=== PATIENT | female | born 1990 | race Caucasian/White ===

== ENCOUNTER → 2017-01-04 | Outpatient (CLI) | payer BC ==
[~2017-01-04] MED LIST: ALBU1AER9 PO; AMOX1TAB43 PO; BCPILLS PO; EPP3/2 IM; HYDR-3785 PO; PRED20TA2 PO
[2017-01-04 15:59] LABS: URINE APPEARANCE CLEAR (CLEAR); URINE BILIRUBIN NEG (NEG); URINE COLOR YELLOW; URINE NITRITE NEG (NEG); URINE SPECIFIC GRAVITY 1.019 (1.000-1.030); UROBILINOGEN NEG (NEG)
[2017-01-04 16:02] LABS: MANUAL MICROSCOPIC REQUIRED? NO; REVIEW REQ? NO
== END | disposition home or self-care (01) ==
LOC: C.LABSPEC 15:39
PROVIDERS: ATTEND Obstetrics & Gynecology
DX: Z34.01 Encounter for supervision of normal first pregnancy, first trimester (principal)

== ENCOUNTER → 2017-01-06 | Outpatient (CLI) | payer BC ==
[2017-01-06 17:17] LABS: BASO % 0.4 %; BASO ABS # 0.04 K/uL (0-0.2); COMPLETE YES; EOS % 1.1 %; IG% 0.4 %; LYMPH % 18.4 %; LYMPH ABS # 1.79 K/uL (1.2-3.4); MEAN CELL VOLUME 84.7 fL (80-100); MEAN CORPUSCULAR HEMOGLOBIN 30.4 pg (25-34); MEAN CORPUSCULAR HGB CONC 35.8 g/dl (32-36); MEAN PLATELET VOLUME 12.3 fL (7.4-10.4); MONO % 7.2 %; NEUT % 72.5 %; PLATELET COUNT 171 K/uL (130-400); RED BLOOD COUNT 4.25 M/uL (4.2-5.4); WHITE BLOOD COUNT 9.75 K/uL (4.8-10.8)
[2017-01-09 07:21] LABS: CHLAMYDIA TRACH RNA*** NOT DETECTED (NOT DETECTED); GC (NEIS GONORRHOEAE)RNA** NOT DETECTED (NOT DETECTED)
== END | disposition home or self-care (01) ==
LOC: C.LAB1850 16:14
PROVIDERS: ATTEND Obstetrics & Gynecology
DX: Z34.01 Encounter for supervision of normal first pregnancy, first trimester (principal)

== ENCOUNTER 2017-01-28 18:50 | Emergency (ER) | payer BC ==
[~2017-01-28] VITALS: Ht 170.2 cm; Wt 69.7 kg
[2017-01-28 18:54] VITALS: TEMP 36.9; Ht 170.2 cm; Wt 69.7 kg
[2017-01-28] MEDS ORDERED: SODIUM CHLORIDE 0.9% 1000ML 1,000 ML IV STA (19:08)
[2017-01-28 19:36] LABS: BASO % 0.1 %; BASO ABS # 0.01 K/uL (0-0.2); COMPLETE YES; EOS % 0.1 %; HEMATOCRIT 38.2 % (37-47); IG% 0.2 %; LYMPH % 3.4 %; LYMPH ABS # 0.39 K/uL (1.2-3.4); MEAN CELL VOLUME 83.6 fL (80-100); MEAN CORPUSCULAR HEMOGLOBIN 30.4 pg (25-34); MEAN CORPUSCULAR HGB CONC 36.4 g/dl (32-36); MEAN PLATELET VOLUME 12.5 fL (7.4-10.4); MONO % 3.4 %; NEUT % 92.8 %; PLATELET COUNT 162 K/uL (130-400); RED BLOOD COUNT 4.57 M/uL (4.2-5.4); WHITE BLOOD COUNT 11.32 K/uL (4.8-10.8)
[2017-01-28 19:53] LABS: BUN/CREATININE RATIO 16.7 (10-20); CALCIUM 8.9 mg/dl (8.5-10.1); CREATININE 0.62 mg/dl (0.60-1.20); POTASSIUM 3.6 mmol/L (3.5-5.1)
[2017-01-28 19:56] LABS: ALB/GLOB RATIO 1.1 (0.9-2)
--- NOTE | 2017-01-28 20:57 | EMERGENCY ROOM VISIT NOTE ---
History First contact with patient: 18:58 Chief Complaint: DEHYDRATION Stated Complaint: THROWING UP, DIZZY, NAUSEA, 11 WKS PREG Nursing Triage Summary: pt is 11 weeks , c/o n/v and dizziness x 2 weeks, worse recently. Pt states that she was advised by OB to come to ED for fluids if symptoms persisted. Pt denies syncope, falls, chest pain, cramping, vaginal bleeding. History of Present Illness The patient is a 26 year old female who presents to the Emergency Room via private vehicle with complaints of "throwing up, dizzy, nausea, 11 weeks ". The patient states that she is 11 weeks , and since week 5 or 6 she has had nausea and vomiting. She states that over the past 2 days she notes that it is worsening and that she cannot keep down foods, and that she vomited 12 times today. She denies any nausea medication. She notes minimal shortness of breath but notes that she does have a cold. She also notes low back pain of which is chronic. She did have a UTI a few weeks ago. There is no vaginal bleeding. She does note minimal lower abdominal cramping which has been ongoing and is not new. Review of Systems A complete 10-point Review of Systems was discussed with the patient, with pertinent positives and negatives listed in the History of Present Illness. All remaining Review of Systems questions can be considered negative unless otherwise specified. Past Medical/Surgical History Medical Problems: (1) Acute gastroenteritis (2) Bronchitis (3) Endometriosis Surgical Problems: (1) No significant past surgical history (2) [place] teeth extracted Family History Cancer Diabetes mellitus Heart disease Hypertension Lung disease Social History Smoking Status: Never Smoker Alcohol Use: none Marital Status: Housing Status: lives with significant other Occupation Status: employed Current/Historical Medications Scheduled Ondasetron Odt (Zofran Odt), 4 MG SL Q6H Physical Exam Vital Signs Date Time Temp Pulse Resp B/P (MAP) Pulse Ox O2 Delivery O2 Flow Rate FiO2 01/28/17 23:16 73 18 100/56 99 Room Air 01/28/17 22:28 74 20 128/72 95 Room Air 01/28/17 19:59 78 18 108/54 98 Room Air 01/28/17 18:54 36.9 101 20 119/75 98 Room Air Physical Exam VITAL SIGNS - Vital signs and nursing notes were reviewed. Stable. GENERAL - 26-year-old female appearing her stated age who is in no acute distress. Communicates well with provider and answers questions appropriately. SKIN - Without rashes. HEAD - NC/AT. EYES - Sclera anicteric. EARS - No deformities of external structures noted on gross examination bilaterally. NOSE - Midline and without cyanosis. No epistaxis or purulent drainage noted. MOUTH/OROPHARYNX - Without perioral cyanosis. LUNGS - Chest wall symmetric without accessory muscle use, intercostals retractions, or central cyanosis. Normal vesicular breath sounds CTA B/L. No wheezes, rales, or rhonchi appreciated. CARDIAC - RRR with S1/S2. No murmur, rubs, or gallops appreciated. EXTREMITIES - No clubbing or peripheral cyanosis. NEUROLOGIC - Cranial nerves II through XII grossly intact. PSYCH -Pt is very pleasant and interacts well with examiner. Medical Decision & Procedures ER Provider Diagnostic Interpretation: <14 WKS SINGLE ULTRASOUND CLINICAL HISTORY: 11 weeks , nausea, vomiting, dizziness COMPARISON STUDY: Pelvic ultrasound 09/15/2014. FINDINGS: There is a single intrauterine gestational sac, yolk sac, and pole demonstrating a crown-rump length of or 4.45 cm. This is consistent with an 11 week and 2 day intrauterine gestation. heart rate was 172 bpm. The cervix is closed. There is a 1.8 cm subchorionic hematoma adjacent to the gestational sac along the right side. This is considered to be within the range of normal limits. This does not result significant mass effect. Normal left ovary. The right ovary was obscured by overlying bowel gas. Developing placenta which is low lying likely due to the gestational age. IMPRESSION: 1. A single viable 11 week and 2 day intrauterine gestation with a heart rate of 172 bpm. 2. Small subchorionic hematoma which is considered to be within the range of normal limits. No associated mass effect. 3. Normal left ovary. The right ovary was obscured by overlying bowel gas. 4. There is a developing placenta which is low lying and adjacent to the cervical os which is likely due to the gestational age. Follow-up pelvic ultrasound at the 20 week jeri is recommended to exclude the less likely possibility of a placenta previa. Electronically signed by: Ebenezer Pretty M.D. 01/28/2017 9:02 PM Dictated Date/Time: 01/28/2017 8:57 PM Laboratory Results 01/28/17 19:20 Red Blood Count 4.57, Mean Corpuscular Volume 83.6, Mean Corpuscular Hemoglobin 30.4, Mean Corpuscular Hemoglobin Concent 36.4, Mean Platelet Volume 12.5, Neutrophils (%) (Auto) 92.8, Lymphocytes (%) (Auto) 3.4, Monocytes (%) (Auto) 3.4, Eosinophils (%) (Auto) 0.1, Basophils (%) (Auto) 0.1, Neutrophils # (Auto) 10.51, Lymphocytes # (Auto) 0.39, Monocytes # (Auto) 0.38, Eosinophils # (Auto) 0.01, Basophils # (Auto) 0.01 01/28/17 19:20 Test 01/28/17 19:20 01/28/17 20:55 White Blood Count 11.32 K/uL (4.8-10.8) Red Blood Count 4.57 M/uL (4.2-5.4) Hemoglobin 13.9 g/dL (12.0-16.0) Hematocrit 38.2 % (37-47) Mean Corpuscular Volume 83.6 fL (80-100) Mean Corpuscular Hemoglobin 30.4 pg (25-34) Mean Corpuscular Hemoglobin Concent 36.4 g/dl (32-36) Platelet Count 162 K/uL (130-400) Mean Platelet Volume 12.5 fL (7.4-10.4) Neutrophils (%) (Auto) 92.8 % Lymphocytes (%) (Auto) 3.4 % Monocytes (%) (Auto) 3.4 % Eosinophils (%) (Auto) 0.1 % Basophils (%) (Auto) 0.1 % Neutrophils # (Auto) 10.51 K/uL (1.4-6.5) Lymphocytes # (Auto) 0.39 K/uL (1.2-3.4) Monocytes # (Auto) 0.38 K/uL (0.11-0.59) Eosinophils # (Auto) 0.01 K/uL (0-0.5) Basophils # (Auto) 0.01 K/uL (0-0.2) RDW Standard Deviation 38.8 fL (36.4-46.3) RDW Coefficient of Variation 12.9 % (11.5-14.5) Immature Granulocyte % (Auto) 0.2 % Immature Granulocyte # (Auto) 0.02 K/uL (0.00-0.02) Anion Gap 11.0 mmol/L (3-11) Est Creatinine Clear Calc Drug Dose 136.1 ml/min Estimated GFR () 146.3 Estimated GFR (Non- 126.2 BUN/Creatinine Ratio 16.7 (10-20) Calcium Level 8.9 mg/dl (8.5-10.1) Total Bilirubin 0.9 mg/dl (0.2-1) Aspartate Amino Transf (AST/SGOT) 15 U/L (15-37) Alanine Aminotransferase (ALT/SGPT) 17 U/L (12-78) Alkaline Phosphatase 56 U/L (45-117) Total Protein 7.4 gm/dl (6.4-8.2) Albumin 3.8 gm/dl (3.4-5.0) Globulin 3.6 gm/dl (2.5-4.0) Albumin/Globulin Ratio 1.1 (0.9-2) Lipase 186 U/L (73-393) Urine Color DK YELLOW Urine Appearance CLOUDY (CLEAR) Urine pH 5.0 (4.5-7.5) Urine Specific [place] 1.032 (1.000-1.030) Urine Protein 1+ (NEG) Urine Glucose (UA) NEG (NEG) Urine Ketones 4+ (NEG) Urine Occult Blood NEG (NEG) Urine Nitrite NEG (NEG) Urine Bilirubin NEG (NEG) Urine Urobilinogen NEG (NEG) Urine Leukocyte Esterase TRACE (NEG) Urine WBC (Auto) 1-5 /hpf (0-5) Urine RBC (Auto) 10-30 /hpf (0-4) Urine Hyaline Casts (Auto) 0 /lpf (0-5) Urine Epithelial Cells (Auto) >30 /lpf (0-5) Urine Bacteria (Auto) NEG (NEG) Urine Pathogenic Casts /lpf (0) Urine Mucus PRESENT (NONE PRSENT) Medications Administered Medications (Trade) Dose Ordered Sig/Ernesto Route Start Time Stop Time Status Last Admin Dose Admin Sodium Chloride 1,000 ml @ 999 mls/hr Q1H1M STAT IV 01/28/17 19:08 01/28/17 20:08 DC 01/28/17 19:20 999 MLS/HR Ondansetron HCl (ZOFRAN ODT 4MG Home Pack) 1 homepack UD STAT PO 01/28/17 21:59 01/28/17 22:00 DC 01/28/17 23:12 1 HOMEPACK Ondansetron HCl (Zofran Odt) 4 mg NOW STAT PO 01/28/17 21:59 01/28/17 22:00 DC 01/28/17 22:28 4 MG Medical Decision Patient was seen and evaluated as above. She presents to us today with vomiting , dizziness and nausea. She has had some pelvic cramping that has been since her but notes no vaginal bleeding. This is her first . She is concerned she now may be dehydrated. She was given 1 L of normal saline, reevaluated and appeared to be feeling better however her vomiting persisted. She had 2 episodes while here. She initially declined anti-emetics. by mouth fluid trial was initiated, and the patient began to vomit. I thoroughly discussed benefits versus risk of antiemetics such as Zofran and the patient noted that she would like Zofran at 9:59 PM. This was after discussing thoroughly and versus risk. White blood cell count 11.32. No concerning anemia. Sodium low 134. No evidence of kidney or liver failure. Urine reveals 4+ ketones, high specific gravity trace leukocytes, red blood cells, epithelial cells and urine mucus. I do not suspect infection. I suspect ketones likely secondary to her vomiting and poor nutrition over the past 2 days. Staying in the hospital for persistent nausea and vomiting in was discussed and offered however she preferred to go home and try and at home trial. I believe this is reasonable. She will be discharged home with zofran, of which as noted benefit versus risk was discussed. She was educated upon management, educated upon worrisome symptoms which to return, had questions prior to discharge, and was discharged home in good condition. The US shows hematoma. This appears to be of normal variant. She is to take it easy and is to not engage in any vigorous exercise until seen by OBGYN this coming Monday. In evaluation treatment this patient following differential diagnoses entertained: Hyperemesis gravidarum, viral URI, viral gastroenteritis, miscarriage, among others. Impression Primary Impression: Nausea & vomiting Additional Impressions: 11 weeks gestation of Subchorionic hematoma in first trimester Departure Information Dispostion Home / Self-Care Condition GOOD Prescriptions Ondasetron Odt (ZOFRAN ODT) 4 Mg Tab 4 MG SL Q6H for Nausea, #30 TAB Prov: Naga Nichols PA-C 01/28/17 Referrals LU MONTGOMERY MD (PCP) Patient Instructions My [facility] Additional Instructions You have been treated in the Emergency Department your nausea, vomiting, and 11 week . You have been prescribed Zofran to be used for any nausea or vomiting. Take as prescribed. As we discussed there is no medication truly safe in . Zofran does have risks, however as we discussed have agreed to choose this medication after thoroughly evaluating benefit verus risk. For pain control, you can use the following [id number] medicines: - Regular strength (325mg/tab) Tylenol (acetaminophen) 2 tabs every 4-6 hours as needed. Do not exceed 12 tablets in a 24 hour period. Avoid taking more than 3 grams (3000 mg) of Tylenol per day. This includes any other sources of acetaminophen you may take on a regular basis.. Drink plenty of water and stay well hydrated. As with any trip to the Emergency Department, you should follow-up with your Primary Care Provider and [facility] from today's visit. Return to the emergency department if your symptoms persist despite treatment plan outlined above or if the following symptoms occur: increased fevers, chills , worsening nausea/vomiting, blood in your stool or urine or vaginal bleeding. Problem Qualifiers
--- NOTE | 2017-01-28 21:04 | DIAGNOSTIC IMAGING REPORT ---
<14 WKS SINGLE ULTRASOUND CLINICAL HISTORY: 11 weeks , nausea, vomiting, dizziness COMPARISON STUDY: Pelvic ultrasound 09/15/2014. FINDINGS: There is a single intrauterine gestational sac, yolk sac, and pole demonstrating a crown-rump length of or 4.45 cm. This is consistent with an 11 week and 2 day intrauterine gestation. heart rate was 172 bpm. The cervix is closed. There is a 1.8 cm subchorionic hematoma adjacent to the gestational sac along the right side. This is considered to be within the range of normal limits. This does not result significant mass effect. Normal left ovary. The right ovary was obscured by overlying bowel gas. Developing placenta which is low lying likely due to the gestational age. IMPRESSION: 1. A single viable 11 week and 2 day intrauterine gestation with a heart rate of 172 bpm. 2. Small subchorionic hematoma which is considered to be within the range of normal limits. No associated mass effect. 3. Normal left ovary. The right ovary was obscured by overlying bowel gas. 4. There is a developing placenta which is low lying and adjacent to the cervical os which is likely due to the gestational age. Follow-up pelvic ultrasound at the 20 week jeri is recommended to exclude the less likely possibility of a placenta previa. Electronically signed by: Ebenezer Pretty M.D. 01/28/2017 9:02 PM Dictated Date/Time: 01/28/2017 8:57 PM
[2017-01-28 21:15] LABS: URINE APPEARANCE CLOUDY (CLEAR); URINE BILIRUBIN NEG (NEG); URINE COLOR DK YELLOW; URINE EPITHELIAL CELL AUTO >30 /lpf (0-5); URINE NITRITE NEG (NEG); URINE SPECIFIC GRAVITY 1.032 (1.000-1.030); UROBILINOGEN NEG (NEG); ZZUR CULT IF INDIC CLEAN CATCH NO
[2017-01-28 21:25] LABS: MANUAL MICROSCOPIC REQUIRED? NO; REVIEW REQ? YES
[2017-01-28 21:38] LABS: URINE MUCUS PRESENT (NONE PRSENT)
[2017-01-28] MEDS ORDERED: ONDANSETRON 4MG OD TAB PO STA (21:59)
[2017-01-28] MEDS ORDERED: ONDANSETRON HOME PACK 4MG OD TAB PO STA (21:59)
[2017-01-28 23:16] VITALS: BP 100/56; PULSE 73; O2SAT 99
[2017-01-28] MEDS ORDERED: ONDA4TAB10 SL (23:17)
== END 2017-01-28 23:35 | disposition home or self-care (01) ==
LOC: C.EDB 18:51 → C.EDA 23:35
DX: O21.9 Vomiting of pregnancy, unspecified (principal); O20.8 Other hemorrhage in early pregnancy; Z3A.11 11 weeks gestation of pregnancy; M54.5 Low back pain; G89.29 Other chronic pain; Z80.9 Family history of malignant neoplasm, unspecified; Z83.3 Family history of diabetes mellitus; Z82.49 Family history of ischemic heart disease and other diseases of the circulatory system

== ENCOUNTER 2017-02-27 13:44 | Emergency (ER) | payer BC ==
[~2017-02-27] VITALS: Ht 170.2 cm; Wt 72.4 kg
[~2017-02-27 13:44] MED LIST changes: -ALBU1AER9 PO; -AMOX1TAB43 PO; -BCPILLS PO; -EPP3/2 IM; -HYDR-3785 PO; +ONDA4TAB10 SL; -PRED20TA2 PO
[2017-02-27 13:54] VITALS: TEMP 37.1; Ht 170.2 cm; Wt 72.4 kg
--- NOTE | 2017-02-27 15:01 | EMERGENCY ROOM VISIT NOTE ---
History Report prepared by Hunter: Amber Burton Under the Supervision of: Dr. Ingris Grijalva D.O. First contact with patient: 14:41 Chief Complaint: PELVIC PAIN Stated Complaint: CONSTTIGHTNESS,SHARP PAIN EVERY 20 MINS 15WKS PREG History of Present Illness The patient is a 26 year old female who presents to the Emergency Room with complaints of intermittent severe sharp left lower abdominal pain beginning this morning. She states this pain occurred several times throughout the day in 20 minutes intervals. She notes she has had constant abdominal tightness since the last episode of sharp pain resided, about 40 minutes ago. The patient is 15 weeks . She states she had an ultrasound to confirm her already. This is the patient's first . She states it took her a long time to get . She notes prior to this she thought she was because she was late on her menstrual cycle which was not normal for her. She states she she took several tests which were negative. She is unsure of why she was late for her menstrual cycle. She states she followed up with her OBGYN for her late period who was unsure of the cause of her delay in her menstrual cycle. The patient notes a family history of miscarriages. She states she was lifting heavy boxes today which is more activity than she normally does. She states she had a UTI a couple weeks ago which she took a full course of antibiotics for. She notes some urinary burning since ending her antibiotics. The patient notes she has had normal She notes some recent intercourse but denies any pain with intercourse. The patient states she had severe morning sickness during her first trimester but states it has lessened as she has entered the second trimester. Pt denies headache, change in vision, fevers, chest pain, shortness of breath, vaginal bleeding, nausea, vomiting, diarrhea, pain with urination, and melena. Source of History: patient Onset: this morning Position: abdomen Symptom Intensity: severe Quality: sharp Timing: intermittent Associated Symptoms: + abdominal pain, + urinary symptoms, No fevers, No chest pain, No SOB, No nausea, No vomiting, No diarrhea Review of Systems See HPI for pertinent positives & negatives. A total of 10 systems reviewed and were otherwise negative. Past Medical & Surgical Medical Problems: (1) Acute gastroenteritis (2) Bronchitis (3) Endometriosis Surgical Problems: (1) No significant past surgical history (2) [place] teeth extracted Family History Cancer Diabetes mellitus Heart disease Hypertension Lung disease Social History Smoking Status: Never Smoker Alcohol Use: none Marital Status: Housing Status: lives with significant other Occupation Status: employed Current/Historical Medications Scheduled Ondasetron Odt (Zofran Odt), 4 MG SL Q6H Allergies Uncoded Allergies: HEAT (Allergy, Unknown, HIVES, PASSES OUT, 11/27/14) Physical Exam Vital Signs Date Time Temp Pulse Resp B/P (MAP) Pulse Ox O2 Delivery O2 Flow Rate FiO2 02/27/17 17:13 72 16 101/61 99 02/27/17 16:28 66 20 101/61 100 Room Air 02/27/17 13:54 37.1 77 18 121/75 100 Room Air Physical Exam GENERAL: alert, well appearing, well nourished, no distress, non-toxic EYE EXAM: normal conjunctiva, PERRL and EOM's grossly intact OROPHARYNX: no exudate, no erythema, lips, buccal mucosa, and tongue normal and mucous membranes are moist NECK: supple, no nuchal rigidity, no adenopathy, non-tender LUNGS: Clear to auscultation. Normal chest wall mechanics HEART: no murmurs, S1 normal and S2 normal ABDOMEN: fundus not palpable, abdomen soft, non-tender, normo-active bowel sounds, no masses, no rebound or guarding. BACK: Back is symmetrical on inspection and there is no deformity, no midline tenderness, no CVA tenderness. SKIN: no rashes and no bruising UPPER EXTREMITIES: upper extremities are grossly normal. LOWER EXTREMITIES: No pitting edema. NEURO EXAM: Normal sensorium, cranial nerves II-XII grossly intact, normal speech, no gross weakness of arms, no gross weakness of legs. Medical Decision & Procedures ER Provider Diagnostic Interpretation: Radiology results have been interpreted by the radiologist and reviewed by me. LIMITED (US) FINDINGS: The maternal cervix is closed. Estimated gestational age is 15 weeks 3 days. Placenta is anterior. No evidence for placenta previa. heart rate is confirmed at 1 49 bpm. [place] contractions noted. The ovaries appear unremarkable. Normal vascular flow to both is confirmed. IMPRESSION: Single, viable intrauterine of approximately 15 weeks 3 days gestational age. 2. A heartbeat is confirmed at 1 49 bpm. 3. No evidence for placenta previa or abruptio placentae. 4.] [place] contraction The above report was generated using voice recognition software. It may contain grammatical, syntax or spelling errors. Electronically signed by: Gabriele Gallardo M.D. Laboratory Results 02/27/17 15:08 Red Blood Count 3.92, Mean Corpuscular Volume 86.0, Mean Corpuscular Hemoglobin 30.9, Mean Corpuscular Hemoglobin Concent 35.9, Mean Platelet Volume 12.1, Neutrophils (%) (Auto) 78.0, Lymphocytes (%) (Auto) 15.4, Monocytes (%) (Auto) 5.1, Eosinophils (%) (Auto) 1.1, Basophils (%) (Auto) 0.2, Neutrophils # (Auto) 7.37, Lymphocytes # (Auto) 1.46, Monocytes # (Auto) 0.48, Eosinophils # (Auto) 0.10, Basophils # (Auto) 0.02 02/27/17 15:08 Test 02/27/17 15:01 02/27/17 15:08 Urine Color YELLOW Urine Appearance CLEAR (CLEAR) Urine pH 5.5 (4.5-7.5) Urine Specific [place] 1.012 (1.000-1.030) Urine Protein NEG (NEG) Urine Glucose (UA) NEG (NEG) Urine Ketones NEG (NEG) Urine Occult Blood NEG (NEG) Urine Nitrite NEG (NEG) Urine Bilirubin NEG (NEG) Urine Urobilinogen NEG (NEG) Urine Leukocyte Esterase NEG (NEG) White Blood Count 9.45 K/uL (4.8-10.8) Red Blood Count 3.92 M/uL (4.2-5.4) Hemoglobin 12.1 g/dL (12.0-16.0) Hematocrit 33.7 % (37-47) Mean Corpuscular Volume 86.0 fL (80-100) Mean Corpuscular Hemoglobin 30.9 pg (25-34) Mean Corpuscular Hemoglobin Concent 35.9 g/dl (32-36) Platelet Count 153 K/uL (130-400) Mean Platelet Volume 12.1 fL (7.4-10.4) Neutrophils (%) (Auto) 78.0 % Lymphocytes (%) (Auto) 15.4 % Monocytes (%) (Auto) 5.1 % Eosinophils (%) (Auto) 1.1 % Basophils (%) (Auto) 0.2 % Neutrophils # (Auto) 7.37 K/uL (1.4-6.5) Lymphocytes # (Auto) 1.46 K/uL (1.2-3.4) Monocytes # (Auto) 0.48 K/uL (0.11-0.59) Eosinophils # (Auto) 0.10 K/uL (0-0.5) Basophils # (Auto) 0.02 K/uL (0-0.2) RDW Standard Deviation 42.8 fL (36.4-46.3) RDW Coefficient of Variation 13.8 % (11.5-14.5) Immature Granulocyte % (Auto) 0.2 % Immature Granulocyte # (Auto) 0.02 K/uL (0.00-0.02) Anion Gap 7.0 mmol/L (3-11) Est Creatinine Clear Calc Drug Dose 150.7 ml/min Estimated GFR () > 150.0 Estimated GFR (Non- 130.5 BUN/Creatinine Ratio 16.2 (10-20) Calcium Level 8.9 mg/dl (8.5-10.1) Total Bilirubin 0.3 mg/dl (0.2-1) Aspartate Amino Transf (AST/SGOT) 15 U/L (15-37) Alanine Aminotransferase (ALT/SGPT) 20 U/L (12-78) Alkaline Phosphatase 50 U/L (45-117) Total Protein 6.7 gm/dl (6.4-8.2) Albumin 3.2 gm/dl (3.4-5.0) Globulin 3.5 gm/dl (2.5-4.0) Albumin/Globulin Ratio 0.9 (0.9-2) Laboratory results per my review. ED Course 1444: The patient was evaluated in room C3. A complete history and physical exam was performed. 1645: I updated the patient and her on her test results. She is resting comfortably and has not had any more episodes of abdominal pain. 1700: I reviewed the patient's case with [facility] [place] [facility]. She agrees pt safe for dc and she will follow up with the patient in her office. 1709: Upon reevaluation, the patient is feeling better. I discussed the findings and the treatment plan with the patient. She verbalizes agreement and understanding. The patient was discharged home. Medical Decision Differential diagnosis: Etiologies such as appendicitis, , diverticulitis, PUD, biliary pathology, UTI, pancreatitis, obstruction, mesenteric ischemia, aortic pathology , infections, inflammatory bowel disease, renal colic, as well as others were entertained. Patient well-appearing here, no evidence of infectious etiology, ultrasound reassuring, labs reassuring. Likely patient with round ligament stretching or mild muscular skeletal pain secondary to lifting heavy boxes. Discussed with her minimizing weight that she is lifting, follow-up with [facility] , symptoms to watch and return for, she verbalized understanding was agreeable with plan. Medication Reconcilliation Current Medication List: was personally reviewed by me Blood Pressure Screening Patient's blood pressure: Normal blood pressure Consults Time Called: 165 Consulting Physician: Dr. Margo MARCUM Returned Call: 1700 I reviewed the patient's case with Dr. Margo MARCUM. She agrees the patient is good to go home and she will follow up with the patient in her office Impression Primary Impression: Additional Impression: Abdominal pain Scribe Attestation The scribe's documentation has been prepared under my direction and personally reviewed by me in its entirety. I confirm that the note above accurately reflects all work, treatment, procedures, and medical decision making performed by me. Departure Information Dispostion Home / Self-Care Referrals LU MONTGOMERY MD (PCP) Forms HOME CARE DOCUMENTATION FORM, IMPORTANT VISIT INFORMATION, WORK / SCHOOL INSTRUCTIONS Patient Instructions My [facility] Additional Instructions Please keep your appointment this week with CARGO BRACER. If you have any recurrent episodes of pain, develop fevers, vomiting, back pain, difficulty urinating, pain with urination, vaginal bleeding or abnormal discharge, or you've any other new concerns, please return the emergency room. Please do not lift anything heavier than 20 lbs. Please make sure you are drinking plenty of water. Problem Qualifiers Primary Impression: Weeks of gestation: 15 weeks Qualified Codes: Z3A.15 - 15 weeks gestation of Additional Impression: Abdominal pain Abdominal location: left lower quadrant Qualified Codes: R10.32 - Left lower quadrant pain
[2017-02-27 15:20] LABS: BASO % 0.2 %; BASO ABS # 0.02 K/uL (0-0.2); EOS % 1.1 %; HEMATOCRIT 33.7 % (37-47); HEMOGLOBIN 12.1 g/dL (12.0-16.0); IG# 0.02 K/uL (0.00-0.02); LYMPH % 15.4 %; LYMPH ABS # 1.46 K/uL (1.2-3.4); MEAN CORPUSCULAR HEMOGLOBIN 30.9 pg (25-34); MEAN CORPUSCULAR HGB CONC 35.9 g/dl (32-36); MEAN PLATELET VOLUME 12.1 fL (7.4-10.4); MONO % 5.1 %; MONO ABS # 0.48 K/uL (0.11-0.59); NEUT ABS # 7.37 K/uL (1.4-6.5); PLATELET COUNT 153 K/uL (130-400); RED CELL DISTRIBUTION WIDTH CV 13.8 % (11.5-14.5); RED CELL DISTRIBUTION WIDTH SD 42.8 fL (36.4-46.3); WHITE BLOOD COUNT 9.45 K/uL (4.8-10.8)
[2017-02-27 15:38] LABS: ALBUMIN 3.2 gm/dl (3.4-5.0); ALT/SGPT 20 U/L (12-78); AST/SGOT 15 U/L (15-37); BLOOD UREA NITROGEN 9 mg/dl (7-18); CALCIUM 8.9 mg/dl (8.5-10.1); CARBON DIOXIDE 25 mmol/L (21-32); CREATININE 0.56 mg/dl (0.60-1.20); GLUCOSE 71 mg/dl (70-99); POTASSIUM 3.5 mmol/L (3.5-5.1); SODIUM 135 mmol/L (136-145)
[2017-02-27 15:41] LABS: ALKALINE PHOSPHATASE 50 U/L (45-117); TOTAL PROTEIN 6.7 gm/dl (6.4-8.2)
--- NOTE | 2017-02-27 16:39 | DIAGNOSTIC IMAGING REPORT ---
LIMITED (US) CLINICAL HISTORY: 15 weeks, LLQ pain pain TECHNIQUE: Ultrasound COMPARISON STUDY: 01/28/2017 FINDINGS: The maternal cervix is closed. Estimated gestational age is 15 weeks 3 days. Placenta is anterior. No evidence for placenta previa. heart rate is confirmed at 1 49 bpm. [place] contractions noted. The ovaries appear unremarkable. Normal vascular flow to both is confirmed. IMPRESSION: Single, viable intrauterine of approximately 15 weeks 3 days gestational age. 2. A heartbeat is confirmed at 1 49 bpm. 3. No evidence for placenta previa or abruptio placentae. 4.] [place] contraction The above report was generated using voice recognition software. It may contain grammatical, syntax or spelling errors. Electronically signed by: Gabriele Gallardo M.D. 02/27/2017 4:37 PM Dictated Date/Time: 02/27/2017 4:35 PM
[2017-02-27 17:13] VITALS: BP 101/61; PULSE 72; O2SAT 99
== END 2017-02-27 17:14 | disposition home or self-care (01) ==
LOC: C.EDB 13:46 → C.EDC 17:14
DX: O26.892 Other specified pregnancy related conditions, second trimester (principal); R10.9 Unspecified abdominal pain; Z3A.15 15 weeks gestation of pregnancy

== ENCOUNTER → 2017-03-03 | Outpatient (CLI) | payer BC | END | disposition home or self-care (01) | LOC: C.LAB1850 16:55 | PROVIDERS: ATTEND Obstetrics & Gynecology | DX: Z34.02 Encounter for supervision of normal first pregnancy, second trimester (principal); Z3A.00 Weeks of gestation of pregnancy not specified ==

== ENCOUNTER → 2017-03-09 | Outpatient (CLI) | payer BC | END | disposition home or self-care (01) | LOC: C.LAB1850 13:17 | PROVIDERS: ATTEND Obstetrics & Gynecology | DX: O28.1 Abnormal biochemical finding on antenatal screening of mother (principal) ==

== ENCOUNTER 2017-05-18 19:52 | Emergency (ER) | payer BC ==
[~2017-05-18] VITALS: Ht 170.2 cm; Wt 75.1 kg
[2017-05-18 19:56] VITALS: TEMP 36.7; Ht 170.2 cm; Wt 75.1 kg
--- NOTE | 2017-05-18 20:26 | EMERGENCY ROOM VISIT NOTE ---
History Report prepared by Hunter: Randy Olmos Under the Supervision of: Dr. Radha Davidson M.D. First contact with patient: 19:59 Chief Complaint: RESPIRATORY PROBLEMS Stated Complaint: SOB, FUZZY VISION, DIZZY, ELEVATE BP- 27WKS PREG History of Present Illness The patient is a 26 year old female who presents to the Emergency Room with complaints of intermittent chest pain that began at 1100. She describes her pain as a sharp and heavy sensation. The patient reports she is currently 27 weeks with her first child. She reports that starting today at 1100, she started to experience dizziness, a headache, and intermittent chest pain. 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 She reports that she usually runs in the 90s systolically, but states the nurse found she was in the 120s. The patient states that when she went home, she found her blood pressure to be in the 130s systolically. She reports her symptoms have also been accompanied by intermittent shortness of breath. The patient states she has been short of breath with walking and even when she is laying down. The patient states she has also had a cough at night which she has had for a while. She reports she is experiencing back pain, but states she has been experiencing similar pain since before she was . She states her chest pain is only mild and general at the moment. She reports that her dizziness is currently mildly alleviated with laying down. The patient denies leg swelling, fever, chills, and worsened symptoms with exertion. Source of History: patient Onset: 1100 Position: chest Quality: sharp, other (heavy) Timing: intermittent Associated Symptoms: + headache, + cough, + SOB, + back pain (old), No fevers, No chills Note: Associated symptoms: lightheaded. Denies: leg swelling Review of Systems See HPI for pertinent positives & negatives. A total of 10 systems reviewed and were otherwise negative. Past Medical & Surgical Medical Problems: (1) Acute gastroenteritis (2) Bronchitis (3) Endometriosis Surgical Problems: (1) No significant past surgical history (2) [place] teeth extracted Family History Cancer Diabetes mellitus Heart disease Hypertension Lung disease Social History Smoking Status: Never Smoker Alcohol Use: none Marital Status: Housing Status: lives with significant other Occupation Status: employed Current/Historical Medications Scheduled Multivit/Min/Iron/Fol Ac/Pren ( Vitamin), 1 TAB PO DAILY Scheduled PRN Albuterol Sulfate (Proair Respiclick), 2 PUFFS INH UD PRN for Rescue/Asthma Epinephrine (Epipen), 0.3 MG IM UD PRN for Allergic Reaction Allergies Uncoded Allergies: HEAT (Allergy, Unknown, HIVES, PASSES OUT, 11/27/14) Physical Exam Vital Signs Date Time Temp Pulse Resp B/P (MAP) Pulse Ox O2 Delivery O2 Flow Rate FiO2 05/19/17 00:07 62 05/19/17 00:00 63 20 99/59 99 Room Air 05/18/17 23:00 68 20 100/59 100 Room Air 05/18/17 21:43 62 20 112/66 98 Room Air 05/18/17 20:35 68 05/18/17 20:35 100 Room Air 05/18/17 20:32 100 Room Air 05/18/17 19:56 36.7 90 18 131/82 100 Room Air Physical Exam Vital signs reviewed. General: Well-appearing 26 year old female, in no significant distress. HEENT: No scleral icterus, PERRLA, neck supple. Atraumatic. Cardiovascular: Regular rate and rhythm, no extra sounds. Pulmonary: Clear to auscultation bilaterally, normal work of breathing. Abdomen: Gravid abdomen, nontender, positive bowel sounds. Musculoskeletal: Atraumatic, no peripheral edema. Neurologic: Patient awake alert and oriented x 3, full strength in all 4 extremities. Cranial nerves 2 through 12 grossly intact. Skin: Warm, dry, no rash Medical Decision & Procedures ER Provider Diagnostic Interpretation: Radiology results as stated below per my review and radiologist interpretation: CHEST ONE VIEW PORTABLE HISTORY: Atypical chest pain. Short of breath. . COMPARISON: Chest 09/15/2015. FINDINGS: The lungs are clear. Cardiac silhouette is normal in size. No pleural effusions. No pneumothorax. IMPRESSION: No acute process. Electronically signed by: Ebenezer Pretty M.D. 05/18/2017 9:29 PM Dictated Date/Time: 05/18/2017 9:28 PM BILATERAL LOWER EXTREMITY VENOUS DOPPLER HISTORY: ., atypical chest pain. Short of breath. Assess for DVT. COMPARISON STUDY: None. FINDINGS: There is normal compressibility, flow, and augmentation within the bilateral lower extremity deep venous systems. IMPRESSION: No DVT within the right or left lower extremity. Electronically signed by: Ebenezer Pretty M.D. 05/18/2017 10:17 PM Dictated Date/Time: 05/18/2017 10:16 PM CTA CHEST: No pulmonary embolus idnetified. No aortic aneurysm or dissection. No acute pulmonary parenchymal abnormality identified. Minimal dependent atelectasis bilaterally. Nonspecific 4 mm nodule in the left lower lobe. If patient is at low risk, no further follow up is necessary. If patient is at high risk, follow- up CT could be considered in 12 months. Borderline size of the spleen. Radiologist: Corby Herrera M.D. Laboratory Results 05/18/17 21:00 Red Blood Count 3.80, Mean Corpuscular Volume 87.9, Mean Corpuscular Hemoglobin 31.6, Mean Corpuscular Hemoglobin Concent 35.9, Mean Platelet Volume 11.5, Neutrophils (%) (Auto) 70.5, Lymphocytes (%) (Auto) 20.0, Monocytes (%) (Auto) 7.0, Eosinophils (%) (Auto) 1.6, Basophils (%) (Auto) 0.2, Neutrophils # (Auto) 6.37, Lymphocytes # (Auto) 1.80, Monocytes # (Auto) 0.63, Eosinophils # (Auto) 0.14, Basophils # (Auto) 0.02 05/18/17 21:00 Test 05/18/17 21:00 White Blood Count 9.02 K/uL (4.8-10.8) Red Blood Count 3.80 M/uL (4.2-5.4) Hemoglobin 12.0 g/dL (12.0-16.0) Hematocrit 33.4 % (37-47) Mean Corpuscular Volume 87.9 fL (80-100) Mean Corpuscular Hemoglobin 31.6 pg (25-34) Mean Corpuscular Hemoglobin Concent 35.9 g/dl (32-36) Platelet Count 137 K/uL (130-400) Mean Platelet Volume 11.5 fL (7.4-10.4) Neutrophils (%) (Auto) 70.5 % Lymphocytes (%) (Auto) 20.0 % Monocytes (%) (Auto) 7.0 % Eosinophils (%) (Auto) 1.6 % Basophils (%) (Auto) 0.2 % Neutrophils # (Auto) 6.37 K/uL (1.4-6.5) Lymphocytes # (Auto) 1.80 K/uL (1.2-3.4) Monocytes # (Auto) 0.63 K/uL (0.11-0.59) Eosinophils # (Auto) 0.14 K/uL (0-0.5) Basophils # (Auto) 0.02 K/uL (0-0.2) RDW Standard Deviation 40.9 fL (36.4-46.3) RDW Coefficient of Variation 12.7 % (11.5-14.5) Immature Granulocyte % (Auto) 0.7 % Immature Granulocyte # (Auto) 0.06 K/uL (0.00-0.02) D-Dimer 1150 ug/L FEU (0-500) Urine Color YELLOW Urine Appearance CLEAR (CLEAR) Urine pH 7.0 (4.5-7.5) Urine Specific [place] 1.009 (1.000-1.030) Urine Protein NEG (NEG) Urine Glucose (UA) NEG (NEG) Urine Ketones NEG (NEG) Urine Occult Blood NEG (NEG) Urine Nitrite NEG (NEG) Urine Bilirubin NEG (NEG) Urine Urobilinogen NEG (NEG) Urine Leukocyte Esterase NEG (NEG) Anion Gap 7.0 mmol/L (3-11) Est Creatinine Clear Calc Drug Dose 163.9 ml/min Estimated GFR () > 150.0 Estimated GFR (Non- 130.5 BUN/Creatinine Ratio 17.3 (10-20) Calcium Level 8.3 mg/dl (8.5-10.1) Total Bilirubin 0.3 mg/dl (0.2-1) Direct Bilirubin < 0.1 mg/dl (0-0.2) Aspartate Amino Transf (AST/SGOT) 16 U/L (15-37) Alanine Aminotransferase (ALT/SGPT) 15 U/L (12-78) Alkaline Phosphatase 59 U/L (45-117) Troponin I < 0.015 ng/ml (0-0.045) Total Protein 6.1 gm/dl (6.4-8.2) Albumin 2.8 gm/dl (3.4-5.0) Laboratory results per my review. Medications Administered Medications (Trade) Dose Ordered Sig/Ernesto Route Start Time Stop Time Status Last Admin Dose Admin Sodium Chloride 1,000 ml @ 999 mls/hr Q1H1M STAT IV 05/18/17 20:40 05/18/17 21:40 DC 05/18/17 21:07 999 MLS/HR ECG Per My Interpretation Indication: chest pain Rate (beats per minute): 67 Rhythm: normal sinus Findings: no acute ischemic change, no ectopy, other (T wave abnormality anteriorly) ED Course 2004: Past medical records reviewed. The patient was evaluated in room B06. A complete history and physical examination was performed. 2039: Ordered Sodium Chloride 1000 ml @ 999 mls/hr IV. 2299: I reevaluated the patient and she is resting comfortably. 2318: I reevaluated the aptietn and updated her on her elevated D-Dimer. I discussed ordering a CT. 0013: Upon reevaluation, the patient appeared to have improvement of her symptoms. I discussed findings with the patient. She verbalized agreement of the treatment plan. The patient was discharged home. Medical Decision Differential diagnosis: Etiologies such as infections, reactive airway disease, pneumonia, pneumothorax , COPD, CHF, cardiac ischemia, pulmonary embolism, musculoskeletal, gastrointestinal, as well as others were entertained. This pt was evaluated and appeared to be in no distress. IV access was obtained and lab work was drawn. Pt was placed on the vehicle monitor technician. Pt was hydrated with NSS. EKG was obtained and reveals a NSR. CXR is clear, U/S of the legs are negative for DVT. D-dimer is positive. Risks and benefits of CTA were discussed. CTA was performed and is negative for PE. Pt was informed of the findings. She was asked to f/u with OBGYN this week. Pain is likely MSK. She will return to the ED for worsening of symptoms or any medical concerns. Medication Reconcilliation Current Medication List: was personally reviewed by me Blood Pressure Screening Patient's blood pressure: Normal blood pressure Impression Primary Impression: Chest pain Additional Impressions: SOB (shortness of breath) Scribe Attestation The scribe's documentation has been prepared under my direction and personally reviewed by me in its entirety. I confirm that the note above accurately reflects all work, treatment, procedures, and medical decision making performed by me. Departure Information Dispostion Home / Self-Care Referrals Manohar Campuzano M.D. (PCP) Forms HOME CARE DOCUMENTATION FORM, IMPORTANT VISIT INFORMATION, WORK / SCHOOL INSTRUCTIONS Patient Instructions My [facility] Additional Instructions Diagnosis: Shortness of breath, chest pain, Please drink plenty of clear fluids. Tylenol 650 mg every 6 hours as needed for pain. Follow-up with your [facility] within the next week for reevaluation. Return to the emergency department or seek medical attention for worsening of symptoms or any medical concerns. Problem Qualifiers
[2017-05-18 20:35] VITALS: O2SAT 100
[2017-05-18] MEDS ORDERED: SODIUM CHLORIDE 0.9% 1000ML 1,000 ML IV STA (20:40)
[2017-05-18 21:18] LABS: BASO % 0.2 %; BASO ABS # 0.02 K/uL (0-0.2); EOS % 1.6 %; EOS ABS # 0.14 K/uL (0-0.5); HEMATOCRIT 33.4 % (37-47); IG# 0.06 K/uL (0.00-0.02); MEAN CELL VOLUME 87.9 fL (80-100); MEAN CORPUSCULAR HEMOGLOBIN 31.6 pg (25-34); MEAN CORPUSCULAR HGB CONC 35.9 g/dl (32-36); MEAN PLATELET VOLUME 11.5 fL (7.4-10.4); MONO ABS # 0.63 K/uL (0.11-0.59); NEUT % 70.5 %; NEUT ABS # 6.37 K/uL (1.4-6.5); PLATELET COUNT 137 K/uL (130-400); RED CELL DISTRIBUTION WIDTH CV 12.7 % (11.5-14.5); RED CELL DISTRIBUTION WIDTH SD 40.9 fL (36.4-46.3); WHITE BLOOD COUNT 9.02 K/uL (4.8-10.8)
--- NOTE | 2017-05-18 21:31 | DIAGNOSTIC IMAGING REPORT ---
CHEST ONE VIEW PORTABLE HISTORY: Atypical chest pain. Short of breath. . COMPARISON: Chest 09/15/2015. FINDINGS: The lungs are clear. Cardiac silhouette is normal in size. No pleural effusions. No pneumothorax. IMPRESSION: No acute process. Electronically signed by: Ebenezer Pretty M.D. 05/18/2017 9:29 PM Dictated Date/Time: 05/18/2017 9:28 PM
[2017-05-18 21:38] LABS: ALBUMIN 2.8 gm/dl (3.4-5.0); ALT/SGPT 15 U/L (12-78); BLOOD UREA NITROGEN 10 mg/dl (7-18); CALCIUM 8.3 mg/dl (8.5-10.1); CARBON DIOXIDE 24 mmol/L (21-32); CREATININE 0.56 mg/dl (0.60-1.20); GLUCOSE 74 mg/dl (70-99); POTASSIUM 3.5 mmol/L (3.5-5.1); SODIUM 137 mmol/L (136-145)
[2017-05-18] MEDS ORDERED: PRENTAB26 PO (21:38)
[2017-05-18] MEDS ORDERED: ALBU18002 INH (21:38)
[2017-05-18] MEDS ORDERED: EPP3/2 IM (21:38)
[2017-05-18 21:43] LABS: ALKALINE PHOSPHATASE 59 U/L (45-117); AST/SGOT 16 U/L (15-37); TOTAL PROTEIN 6.1 gm/dl (6.4-8.2)
--- NOTE | 2017-05-18 22:18 | DIAGNOSTIC IMAGING REPORT ---
BILATERAL LOWER EXTREMITY VENOUS DOPPLER HISTORY: ., atypical chest pain. Short of breath. Assess for DVT. COMPARISON STUDY: None. FINDINGS: There is normal compressibility, flow, and augmentation within the bilateral lower extremity deep venous systems. IMPRESSION: No DVT within the right or left lower extremity. Electronically signed by: Ebenezer Pretty M.D. 05/18/2017 10:17 PM Dictated Date/Time: 05/18/2017 10:16 PM
[2017-05-18] MEDS ORDERED: OPTIRAY 320 IV PRN (23:15)
[2017-05-19] VITALS: BP 99/59; O2SAT 99
[2017-05-19 00:07] VITALS: PULSE 62
--- NOTE | 2017-05-19 07:09 | DIAGNOSTIC IMAGING REPORT ---
CT ANGIOGRAM OF THE CHEST CLINICAL HISTORY: Dyspnea. COMPARISON STUDY: Chest x-ray dated 05/18/2017. TECHNIQUE: Following the IV administration of 93 cc of Optiray 320, CT angiogram of the chest was performed from the upper abdomen to the thoracic inlet utilizing the pulmonary embolus protocol. Images are reviewed in the axial, sagittal, and coronal planes. 3-D MIPS images are created and assessed. IV contrast was administered without complication. A dose lowering technique was utilized adhering to the principles of ALARA. CT DOSE: 211.81 mGy.cm FINDINGS: Thyroid: Imaged portions of the thyroid gland are normal in size and attenuation. Thoracic aorta: The thoracic aorta is normal in caliber and demonstrates standard 3-vessel arch anatomy. No dissection is seen. Pulmonary vasculature: The pulmonary trunk is normal in caliber. There are no filling defects identified in main, lobar, or segmental pulmonary branches to suggest pulmonary embolus. Heart: The heart is normal in size and configuration, and without pericardial effusion. Lungs and pleural spaces: There is a 3 mm left lower lobe nodule seen on image #86. This is of doubtful significance in this age group. The lungs and pleural spaces are otherwise clear. The trachea and central airways are patent. Mediastinum: There is no mediastinal lymphadenopathy. Gi: Clear. Axillae: There is no axillary lymphadenopathy. Upper abdomen: Partially visualized upper abdominal viscera is within normal limits. Skeletal structures: No lytic or blastic bony lesions are seen. IMPRESSION: 1. There is no evidence of pulmonary embolus in the main, lobar, or segmental pulmonary arteries. 2. The lungs are clear. Electronically signed by: Ren Trejo M.D. 05/19/2017 7:07 AM Dictated Date/Time: 05/19/2017 7:05 AM
== END 2017-05-19 00:26 | disposition home or self-care (01) ==
LOC: C.EDB 19:54
DX: F07.9 Unspecified personality and behavioral disorder due to known physiological condition (principal); R06.02 Shortness of breath; Z34.80 Encounter for supervision of other normal pregnancy, unspecified trimester

== ENCOUNTER → 2017-05-26 | Outpatient (CLI) | payer BC ==
[~2017-05-26] MED LIST changes: +ALBU18002 INH; +EPP3/2 IM; -ONDA4TAB10 SL; +PRENTAB26 PO
[2017-05-26 17:43] LABS: HEMATOCRIT 35.8 % (37-47); HEMOGLOBIN 12.6 g/dL (12.0-16.0)
== END ==
LOC: C.LAB1850 16:56
PROVIDERS: ATTEND Obstetrics & Gynecology
DX: Z34.03 Encounter for supervision of normal first pregnancy, third trimester (principal)

== ENCOUNTER → 2017-05-27 | Outpatient (CLI) | payer BC | LOC: C.LAB1850 09:06 | PROVIDERS: ATTEND Obstetrics & Gynecology | DX: Z34.03 Encounter for supervision of normal first pregnancy, third trimester (principal) ==

== ENCOUNTER → 2017-06-23 | Outpatient (CLI) | payer BC | END | disposition home or self-care (01) | LOC: C.LABSPEC 17:35 | PROVIDERS: ATTEND Obstetrics & Gynecology | DX: Z34.03 Encounter for supervision of normal first pregnancy, third trimester (principal) ==

== ENCOUNTER 2022-06-15 18:15 | Inpatient (IN) ==
[2022-06-16] MEDS ORDERED: LIDOCAINE 1% LOCAL 20 ML VIAL INFIL PRN (16:40)
[2022-06-16] MEDS ORDERED: LACTATED RINGER'S 1,000 ML IV PRN (16:40)
[2022-06-16] MEDS ORDERED: OXYTOCIN 30 UNITS/500 ML BAG IV PRN ×2 (16:40)
[2022-06-16] MEDS ORDERED: PENICILLIN G POTASSIUM 6 MU in DEXTROSE 5% 250 ML IV STA (16:43)
[2022-06-16 16:59] LABS: Hemoglobin 10.9 g/dl (12.0-16.0); Mean Corpuscular Hemoglobin 27.3 pg (25.0-34.0); Mean Corpuscular Volume 82.7 fL (80.0-100.0); Mean Platelet Volume 13.2 fL (9.4-12.4); Platelet Count 149 K/uL (130-400); RDW Coefficient of Variation 13.2 % (11.5-14.5); RDW Standard Deviation 39.7 fL (36.4-46.3); Red Blood Count 3.99 M/uL (4.20-5.40)
[2022-06-16] MEDS ORDERED: PENICILLIN G POTASSIUM 3 MU in DEXTROSE 5% 100 ML IV PRN (19:40)
[2022-06-16] MEDS ORDERED: fentaNYL citrate PF 100 MCG/2 ML VIAL ONE (21:27)
[2022-06-16] MEDS ORDERED: LIDOCAINE 2%/EPINEPHRINE 1:200,000 20 ML PF ONE (21:28)
[2022-06-16] MEDS ORDERED: SODIUM CHLORIDE 0.9% PF INJ 10 ML VIAL ONE (21:28)
[2022-06-16] MEDS ORDERED: fentaNYL 2MCG/ML ROPIVACAINE 1.25MG/ML 100 ML BAG EPI ONE (21:28)
[2022-06-16] MEDS ORDERED: BUPIVACAINE 0.25% PF 30 ML VIAL ONE (21:28)
[2022-06-16] MEDS ORDERED: LIDOCAINE 2% MPF LOCAL 5 ML VIAL EPI PRN (21:31)
[2022-06-16] MEDS ORDERED: NALOXONE HCL 1 MG in SODIUM CHLORIDE 0.9% 1000ML 1,000 ML IV PRN (21:31)
[2022-06-16] MEDS ORDERED: NALOXONE HCL 0.4 MG/1 ML VIAL/CARP IV PRN (21:31)
[2022-06-16] MEDS ORDERED: fentaNYL citrate PF 100 MCG/2 ML VIAL EPI PRN (21:31)
[2022-06-16] MEDS ORDERED: BUPIVACAINE 0.25% PF 30 ML VIAL EPI STA (21:31)
[2022-06-16] MEDS ORDERED: diphenhydrAMINE 50 MG/ML VIAL IV PRN (21:31)
[2022-06-16] MEDS ORDERED: fentaNYL citrate PF 100 MCG/2 ML VIAL EPI STA (21:31)
[2022-06-16] MEDS ORDERED: ROPIVACAINE 0.5% PF 5 MG/ML 20 ML VIAL EPI PRN (21:31)
[2022-06-16] MEDS ORDERED: BUPIVACAINE 0.25% PF 30 ML VIAL EPI PRN (21:31)
[2022-06-16] MEDS ORDERED: fentaNYL 2MCG/ML ROPIVACAINE 1.25MG/ML 100 ML BAG EPI PRN (21:31)
[2022-06-16] MEDS ORDERED: SODIUM CHLORIDE 0.9% PF INJ 10 ML VIAL EPI PRN (21:31)
[2022-06-16] MEDS ORDERED: ONDANSETRON INJ 2 MG/ML 2 ML VIAL IV PRN (21:31)
[2022-06-16] MEDS ORDERED: ePHEDrine sulfate 50 MG/ML AMP IV PRN (21:31)
[2022-06-16] MEDS ORDERED: NALBUPHINE HCL INJ 10 MG/ML AMP IV PRN (21:31)
[2022-06-16] MEDS ORDERED: SODIUM CHLORIDE 0.9% PF INJ 10 ML VIAL EPI STA (21:31)
[2022-06-16] MEDS ORDERED: LIDOCAINE 2%/EPINEPHRINE 1:200,000 20 ML PF EPI STA (21:31)
--- NOTE | 2022-06-16 21:35 | Anesthesiology Consultation ---
Date of Service June 16, 2022 Assessment & Plan Chart Review Chart Review: Acceptable Risk for Labor Epidural Consults Requested none ASA ASA2 Proposed Anesthesia Anesthesia Type: Labor Epidural Risk / Benefits Reviewed With: PT / POA / Parent / Guardian, Accepts Plan and Informed Consent Obtained History Height/Weight Height: 5 ft 8 in Weight: 95.254 kg Allergies Allergy/AdvReac Type Severity Reaction Status Date / Time sumatriptan [From Imitrex] Allergy Intermediate leg Verified 06/14/22 13:59 numbness. Medications Home Medications Medication Instructions Recorded Confirmed Last Taken albuterol sulfate 90 mcg/actuation 2 puff inhalation Q6H PRN 08/05/21 06/14/22 04/16/22 aerosol inhaler shortness of breath or wheezing #18 grams epinephrine 0.3 mg/0.3 mL See Rx Instructions .Route .COMPLEX 11/08/21 06/14/22 Unknown injection, auto-injector hydroxyzine HCl 50 mg tablet 50 mg PO Q6 11/08/21 06/14/22 Unknown prenat.vits,zohra,[id number] 1 tab PO DAILY 11/08/21 06/14/22 04/16/22 Active Medications Generic Name Dose Route Start Last Admin Trade Name Freq PRN Reason Stop Dose Admin Lactated Ringer's 1,000 mls @ 125 mls/hr 06/16/22 16:40 06/16/22 18:33 Lr IV 06/18/22 16:39 125 mls/hr .Q8H PRN Administration L&D Protocol Protocol Oxytocin 30 units in 500 mls @ 9 mls/hr 06/16/22 16:40 06/16/22 21:05 Pitocin IV 06/18/22 16:39 0.54 units/hr .Q24H PRN 9 mls/hr Labor Induction/Augmentation Titration Protocol 0.54 UNITS/HR Past Medical History Medical History Asthma exercise induced Chronic nausea Endometriosis History of anaphylaxis Hx of varicella Migraine headache Weight gain Exercise / Class Metabolic Activity II 4-5 Yardwork/Stairs/Walk up hill Past Family History Family History Aunt Liver cancer Grandmother (Paternal) Colorectal cancer Liver cancer Grandfather (Maternal) Myocardial infarction Coronary heart disease Diabetes Father Valvular heart disease Hypertension Mother Hypertension Other Asthma Cancer Kidney disease Denies family history of Ovarian cancer Prostate cancer Breast cancer Past Surgical History Surgical History [place] teeth extracted Past Anesthesia History No Hx of Anesthesia Complications and No Family Hx of Anesthesia Complications History of PONV No Hx of PONV and No Hx of Motion Sickness Social History Smoking Status: Never smoker Do You Dip or Chew Tobacco: No Hx Alcohol Use: No Hx Substance Use: No substance use type: does not use Physical Exam Vital Signs Last Vital Signs Temp 98.1 F 06/16/22 18:56 Pulse 80 06/16/22 21:07 Resp 18 06/16/22 20:03 BP 124/66 06/16/22 21:07 ENMT Mouth: no dentition abnormality Thyromental Distance: > or= 3.5 Finger Breadths Mallampati Class: II Neck normal visual inspection Respiratory normal respiratory effort Auscultation: lungs clear to auscultation bilaterally Cardiovascular Rate/Rhythm: regular rate and regular rhythm Testing Laboratory Results 06/16/22 16:47
--- NOTE | 2022-06-16 21:52 | History & Physical Report ---
Date of Service June 16, 2022 Assessment & Plan (1) Encounter for supervision of normal in multigravida: Plan: Multip for elective IOL pitocin augmentation begun start PCN G now epidural analgesia when requested anticipate vaginal delivery Admission and Anticipated Discharge Date Admission Date: June 16, 2022 History of Present Illness Primary Care Provider: Sarahi Watts DO Patient is a EDC 06/18 who presents at 39 5/7 weeks for elective IOL. she has been having irregular ctns. no SPROM or bloody show. GBS - positive Allergies Allergy/AdvReac Type Severity Reaction Status Date / Time sumatriptan [From Imitrex] Allergy Intermediate leg Verified 06/14/22 13:59 numbness. Home Medications Medication Instructions Recorded Confirmed Type albuterol sulfate 90 mcg/actuation 2 puff inhalation Q6H PRN 08/05/21 06/14/22 Rx aerosol inhaler shortness of breath or wheezing #18 grams epinephrine 0.3 mg/0.3 mL See Rx Instructions .Route .COMPLEX 11/08/21 06/14/22 History injection, auto-injector hydroxyzine HCl 50 mg tablet 50 mg PO Q6 11/08/21 06/14/22 History prenat.vits,zohra,[id number] 1 tab PO DAILY 11/08/21 06/14/22 History Patient History Medical History Asthma exercise induced Chronic nausea Endometriosis History of anaphylaxis Hx of varicella Migraine headache Weight gain Surgical History [place] teeth extracted Family History Aunt Liver cancer Grandmother (Paternal) Colorectal cancer Liver cancer Grandfather (Maternal) Myocardial infarction Coronary heart disease Diabetes Father Valvular heart disease Hypertension Mother Hypertension Other Asthma Cancer Kidney disease Denies family history of Ovarian cancer Prostate cancer Breast cancer Social History (Updated 11/08/21 @ 15:16 by Shanon Pope) Smoking Status: Never smoker Do You Dip or Chew Tobacco: No; Hx Alcohol Use: No Hx Substance Use: No Preferred Language: German Communication Ability: Effective Visual Impairment: No Limitations Hearing Ability: Normal Credit Correspondence Clerk Required: No Beliefs That Will Affect Care: None marital status: marital status details: Alberto Cha (31) [phone] Current Living Situation: Spouse Current Living Situation Comment: son current occupational status: employed current occupation: photography self employed Other Information That Helps Us Care for You: No Feels Safe at Home: Yes Safety Concerns: Feels Safe At This Time Diet: regular Diet Comment: regular caffeine: Yes during the past year weight has: increased > 10 lbs Dental Care, Regularly: Yes Physical Activity Frequency: Daily Seatbelt Use: always Sunscreen Use: Yes Assistive Devices: Contacts Review of Systems All systems reviewed & are unremarkable except as noted in HPI & below Physical Exam Constitutional: WD/WN, vitals as above Psychiatric: A+Ox3, euthymic affect Genitourinary: OB Exam Abdomen: + vertex, + estimated weight (7-8 pounds) and + irregular contractions Manual OB Exam: + cervical dilation 1 cm, + cervical effacement 50% and + station -2 OB Exam Monitor Tracing: + external FHT monitor used, + external uterine monitor used, + category I and + normal FHT variability cervical balloon placed under direct visualization. 40cc water instilled into the balloon. the catheter was then placed on traction and attached to her left thigh. she tolerated the procedure well. Results & Data Vital Signs (Past 12 Hours) Vital Signs Temp Pulse Resp BP Pulse Ox 06/16/22 21:43 88 97 06/16/22 21:38 87 99 06/16/22 21:33 89 98 06/16/22 21:07 80 124/66 06/16/22 20:03 86 18 123/71 06/16/22 18:56 98.1 F 85 18 123/75 06/16/22 18:31 98.1 F 96 H 19 117/79 06/16/22 16:30 100 H 124/68 Code Status & VTE Plan VTE Prophylaxis Plan VTE Prophylaxis will be ordered: No Coding Level of Care Code None Diagnoses Encounter for supervision of normal in multigravida Z34.80 CPT Codes Misx Procedure Codes - 98870 Placement of cervical dilator: 05774 Placement of cervical dilator ([id number])
[2022-06-17] MEDS ORDERED: BENZOCAINE 20% AER SPR 82.5 GM CAN EXT PRN (00:12)
[2022-06-17] MEDS ORDERED: HYDROCORTISONE ACETATE 25 MG SUPP PR PRN (00:12)
[2022-06-17] MEDS ORDERED: DIPHTHERIA/TETANUS/PERTUSSIS Vaccine (Tdap, Age 7+yrs) 0.5mL SYR/VL IM ONE (00:12)
[2022-06-17] MEDS ORDERED: ACETAMINOPHEN 325 MG TAB PO PRN (00:12)
[2022-06-17] MEDS ORDERED: OXYTOCIN 30 UNITS/500 ML BAG IV PRN (00:12)
[2022-06-17] MEDS ORDERED: oxyCODONE/ACETAMINOPHEN 5mg/325mg TAB PO PRN (00:12)
[2022-06-17] MEDS ORDERED: bisacodyL 10 MG SUPP PR PRN (00:12)
--- NOTE | 2022-06-17 00:20 | Delivery Summary ---
Vaginal Delivery Summary Date of Service June 17, 2022 Vaginal Delivery Summary and 1st Degree LAC Patient is a 31-year-old 3 para 1-0-1-1 female who presents at 39-6/7 weeks for elective induction of labor. A cervical balloon was placed simultaneously with starting Pitocin augmentation. She received epidural analgesia which was marginally effective. Membranes had ruptured for clear fluid spontaneously. She rapidly went to full dilation with the urge to push. She pushed effectively over intact perineum for delivery of a viable female infant. After the head was delivered the rest the infant delivered easily and was placed on the mother's abdomen for further attention and drying. She was vigorous, crying, and moving all 4 limbs. After 1 minute the cord was clamped and cut. After cord blood was obtained, the placenta was expressed intact with a three-vessel cord. bleeding was controlled with dilute Pitocin and fundal massage. A first-degree perineal laceration was repaired with 3-0 chromic in usual fashion. Estimated blood loss was 200 cc. Mother and infant were doing well after delivery. [facility] Vaginal Delivery Charge Delivery Type Details: and 1st Degree LAC
[2022-06-17] MEDS: IBUPROFEN 600 MG TAB PO PRN ×4 (01:57→20:01)
--- NOTE | 2022-06-17 06:25 | Obstetrical Progress Note ---
Date of Service June 17, 2022 Assessment & Plan (1) Elevated BP without diagnosis of hypertension: (2) Encounter for anatomic survey: (3) Group B streptococcal infection during : (4) Need for rhogam due to Rh negative mother: (5) Encounter for supervision of normal in multigravida: Plan Tiffany is a 31 y/o female who is PPD #1 following delivery at 39w5d. -Meeting all milestones -Vital signs reviewed and WNL -A-/GBS positive/Rubella immune, received Penicillin in labor -Follow up in 6 weeks for appointment -Continue routine care Admission and Anticipated Discharge Date Admission Date: June 16, 2022 Supervising Physician Co-Signing Physician Notes Resident Physician Supervision Note: I interviewed and examined the patient. Discussed with Dr. Lacey and agree with findings and plan as documented in the note. Any exceptions or clarificat ions are listed here: [None] Documented By: Olga Edwards MD, FACOG Subjective Tiffany is a 31 y/o female who is PPD #1 following delivery at 39w5d. She reports feeling well overall this morning. Notes abdominal cramping but pain is well managed on analgesics. Voiding without issue, no dysuria. Tolerating meals overnight and able to ambulate some. Denies any significant change in vaginal bleeding overnight. Wearing an abdominal binder which has helped with her comfort. Currently breast feeding. Review of Systems Constitutional: no fever, no chills and no sweats Respiratory: no cough, no dyspnea and no wheezing Cardiovascular: no chest pain, no palpitations and no calf pain Genitourinary: no dysuria Neurologic: no headache(s) Physical Exam Constitutional: WD/WN, vitals as above no acute distress Respiratory: no respiratory distress Auscultation: lungs clear to auscultation bilaterally; no rales, no rhonchi and no wheezes Cardiovascular: RRR, no murmur, no edema Extremities: no calf tenderness and no edema Negative Osmar's sign bilaterally. Gastrointestinal (Abdomen): Inspection/Auscultation: normal bowel sounds Genitourinary: Uterine fundus firm, palpable below the umbilicus. Results & Data Vital Signs (Past 12 Hours) Vital Signs Temp Pulse Pulse Resp BP BP Pulse Ox 06/17/22 03:35 36.7 C 79 18 112/71 97 06/17/22 01:54 75 18 120/71 06/17/22 01:39 82 123/74 06/17/22 01:24 91 H 18 119/66 06/17/22 01:10 92 H 112/71 06/17/22 00:54 86 18 124/69 06/17/22 00:39 72 18 128/73 06/17/22 00:29 71 18 125/69 06/17/22 00:09 85 18 126/62 06/16/22 23:58 91 H 90 06/16/22 23:57 89 91 06/16/22 23:54 100 H 18 130/83 06/16/22 23:53 91 H 100 06/16/22 23:48 81 97 06/16/22 23:49 78 118/87 06/16/22 23:45 84 94 06/16/22 23:43 82 97 06/16/22 23:44 81 106/76 06/16/22 23:41 94 H 100/63 06/16/22 23:38 98 H 83 L 06/16/22 23:37 87 139/87 92 06/16/22 23:33 87 88 L 06/16/22 23:29 84 133/67 90 06/16/22 23:28 78 97 06/16/22 23:24 94 06/16/22 23:24 86 06/16/22 23:23 84 95 06/16/22 23:24 83 127/80 06/16/22 23:20 76 121/69 06/16/22 23:18 87 91 06/16/22 23:13 76 92 06/16/22 23:14 85 123/60 06/16/22 23:11 75 93 06/16/22 23:08 87 95 06/16/22 23:06 89 94 06/16/22 23:07 86 130/61 06/16/22 23:05 84 129/60 06/16/22 23:03 85 95 06/16/22 23:04 83 122/76 06/16/22 23:01 88 120/68 06/16/22 23:00 91 H 94 06/16/22 22:59 82 124/77 06/16/22 22:58 96 H 89 L 06/16/22 22:57 86 120/70 05/11/23 22:55 95 H 115/65 06/16/22 22:54 88 100/58 L 06/16/22 22:53 94 H 93 06/16/22 22:52 87 104/53 L 06/16/22 22:48 101 H 95 06/16/22 22:46 74 96/53 L 93 06/16/22 22:45 76 90/54 L 06/16/22 22:43 93 06/16/22 22:43 72 06/16/22 22:43 74 95/47 L 06/16/22 22:40 97 H 93 06/16/22 22:38 78 95 06/16/22 22:33 89 95 06/16/22 22:32 98 H 94 06/16/22 22:28 87 95 06/16/22 22:26 87 94 06/16/22 22:23 107 H 95 06/16/22 22:24 100 H 147/63 H 06/16/22 22:20 36.9 C 101 H 117/65 06/16/22 22:19 98 H 94 06/16/22 22:18 100 H 121/66 95 06/16/22 22:17 107 H 137/63 06/16/22 22:13 97 06/16/22 22:13 111 H 06/16/22 22:13 85 132/63 06/16/22 22:11 88 129/67 06/16/22 22:08 88 97 06/16/22 22:09 85 128/78 06/16/22 22:07 80 121/66 06/16/22 22:04 88 118/79 06/16/22 22:03 98 06/16/22 22:03 80 06/16/22 22:03 82 117/71 06/16/22 22:01 81 107/84 06/16/22 21:58 87 96 06/16/22 21:59 89 114/83 06/16/22 21:56 91 H 122/76 06/16/22 21:54 80 123/72 06/16/22 21:53 86 95 06/16/22 21:52 82 123/69 06/16/22 21:51 95 H 127/70 06/16/22 21:48 89 97 06/16/22 21:43 88 97 06/16/22 21:38 87 99 06/16/22 21:33 89 98 06/16/22 21:07 80 124/66 06/16/22 20:03 86 18 123/71 06/16/22 18:56 36.7 C 85 18 123/75 06/16/22 18:31 36.7 C 96 H 19 117/79 O2 Del Method 06/17/22 03:35 Room Air 06/17/22 01:54 06/17/22 01:39 06/17/22 01:24 06/17/22 01:10 06/17/22 00:54 06/17/22 00:39 06/17/22 00:29 06/17/22 00:09 06/16/22 23:58 06/16/22 23:57 06/16/22 23:54 06/16/22 23:53 06/16/22 23:48 06/16/22 23:49 06/16/22 23:45 06/16/22 23:43 06/16/22 23:44 06/16/22 23:41 06/16/22 23:38 06/16/22 23:37 06/16/22 23:33 06/16/22 23:29 06/16/22 23:28 06/16/22 23:24 06/16/22 23:24 06/16/22 23:23 06/16/22 23:24 06/16/22 23:20 06/16/22 23:18 06/16/22 23:13 06/16/22 23:14 06/16/22 23:11 06/16/22 23:08 06/16/22 23:06 06/16/22 23:07 06/16/22 23:05 06/16/22 23:03 06/16/22 23:04 06/16/22 23:01 06/16/22 23:00 06/16/22 22:59 06/16/22 22:58 06/16/22 22:57 06/16/22 22:55 06/16/22 22:54 06/16/22 22:53 06/16/22 22:52 06/16/22 22:48 06/16/22 22:46 06/16/22 22:45 06/16/22 22:43 06/16/22 22:43 06/16/22 22:43 06/16/22 22:40 06/16/22 22:38 06/16/22 22:33 06/16/22 22:32 06/16/22 22:28 06/16/22 22:26 06/16/22 22:23 06/16/22 22:24 06/16/22 22:20 06/16/22 22:19 06/16/22 22:18 06/16/22 22:17 06/16/22 22:13 06/16/22 22:13 06/16/22 22:13 06/16/22 22:11 06/16/22 22:08 06/16/22 22:09 06/16/22 22:07 06/16/22 22:04 06/16/22 22:03 06/16/22 22:03 06/16/22 22:03 06/16/22 22:01 06/16/22 21:58 06/16/22 21:59 06/16/22 21:56 06/16/22 21:54 06/16/22 21:53 06/16/22 21:52 06/16/22 21:51 06/16/22 21:48 06/16/22 21:43 06/16/22 21:38 06/16/22 21:33 06/16/22 21:07 06/16/22 20:03 06/16/22 18:56 06/16/22 18:31 Resident Activity Tracking Resident Involvement: Resident Care Provided Care Provided: OB Delivery
[2022-06-17] MEDS: PRENATAL VITAMIN 1 TAB PO SCH (08:22)
[2022-06-17] MEDS: DOCUSATE SODIUM 100 MG CAP PO SCH ×2 (08:22→20:01)
--- NOTE | 2022-06-17 09:13 | Anesthesia Procedure Note ---
Date of Service June 17, 2022 Anesthesia Post Epidural Note Vital Signs Vital Signs: Temp Pulse Resp BP Pulse Ox O2 Del Method 36.7 C 79 18 112/71 97 Room Air 06/17/22 03:35 06/17/22 03:35 06/17/22 03:35 06/17/22 03:35 06/17/22 03:35 06/17/22 03:35 Pain Intensity Abdomen: Pain Intensity: 6 Notes Mental Status: alert / awake / arousable and participated in evaluation Nausea / Vomiting: adequately controlled Pain: adequately controlled Airway Patency, RR, SpO2: stable & adequate BP & HR: stable & adequate Hydration State: stable & adequate Neuraxial Anesthesia: was administered and sensory block resolved Anesthetic Complications: no major complications apparent and Pt Satisfied with anesthetic care Epidural: Removed without complications and With tip intact
[2022-06-18] MEDS: IBUPROFEN 600 MG TAB PO PRN ×2 (02:53→08:41)
--- NOTE | 2022-06-18 06:02 | Obstetrical Progress Note ---
Date of Service June 18, 2022 Assessment & Plan (1) Elevated BP without diagnosis of hypertension: (2) Encounter for anatomic survey: (3) Group B streptococcal infection during : (4) Need for rhogam due to Rh negative mother: (5) Encounter for supervision of normal in multigravida: Basil Allen is a 31 y/o female who is PPD #2 following delivery at 39w5d. -Meeting all milestones -Vital signs reviewed and WNL -A-/GBS positive/Rubella immune, received Penicillin in labor -Follow up in 6 weeks for appointment -Continue routine care -Plan for d/c today Admission and Anticipated Discharge Date Admission Date: June 16, 2022 Supervising Physician Co-Signing Physician Notes Resident Physician Supervision Note: I interviewed and examined the patient. Discussed with Dr. Lacey and agree with findings and plan as documented in the note. Any exceptions or clarifications are listed here: 31 yo PP2 s/p , doing well. VSS, exam benign and wnl. Stable for d/c home today Documented By: Madie Jovel MD Dennise Allen is a 31 y/o female who is PPD #2 following delivery at 39w5d. She reports feeling well overall this morning. Notes abdominal cramping but pain is well managed on analgesics. Voiding without issue, no dysuria. Tolerating meals overnight and able to ambulate some. Notes that her vaginal bleeding seems to be decreasing. Currently breast feeding. Feels that she did not drink enough water yesterday and is working on increasing her PO intake. Review of Systems Constitutional: no fever, no chills and no sweats Respiratory: no cough, no dyspnea and no wheezing Cardiovascular: no chest pain, no palpitations and no calf pain Genitourinary: no dysuria Neurologic: no headache(s) Physical Exam Constitutional: WD/WN, vitals as above no acute distress Respiratory: no respiratory distress Auscultation: lungs clear to auscu ltation bilaterally; no rales, no rhonchi and no wheezes Cardiovascular: RRR, no murmur, no edema Extremities: no calf tenderness and no edema Gastrointestinal (Abdomen): Inspection/Auscultation: normal bowel sounds Skin: no rashes, warm and dry Genitourinary: Uterine fundus firm, palpable below umbilicus. Results & Data Vital Signs (Past 12 Hours) Vital Signs Temp Pulse Resp BP O2 Del Method 06/18/22 02:45 36.4 C L 69 16 116/67 Room Air 06/17/22 19:50 36.7 C 92 H 18 112/73 Room Air 06/17/22 19:50 Room Air Resident Activity Tracking Resident Involvement: Resident Care Provided Care Provided: OB Delivery
[2022-06-18 06:59] LABS: Hematocrit (blood only) 30.5 % (37.0-47.0); Mean Corpuscular Hemoglobin 27.5 pg (25.0-34.0); Mean Corpuscular Hgb Conc 32.8 g/dL (32.0-36.0); Mean Platelet Volume 13.3 fL (9.4-12.4); Platelet Count 126 K/uL (130-400); RDW Coefficient of Variation 13.4 % (11.5-14.5); RDW Standard Deviation 41.1 fL (36.4-46.3); Red Blood Count 3.63 M/uL (4.20-5.40); White Blood Count 9.59 K/ul (4.8-10.8)
[2022-06-18] MEDS: DOCUSATE SODIUM 100 MG CAP PO SCH (08:41)
[2022-06-18] MEDS: PRENATAL VITAMIN 1 TAB PO SCH (08:41)
[2022-06-18] MEDS ORDERED: bisacodyL 5 MG TABEC PO SCH (20:00)
== END 2022-06-18 11:45 | disposition home or self-care (01) | DRG 807 ==
LOC: 4S1 06-16 16:01 → 4E2 06-17 03:35